=== PATIENT | male | born 1960 | race Caucasian/White ===

== ENCOUNTER 2024-07-27 22:24 | Emergency (ER) | payer OTHER ==
[~2024-07-27] VITALS: Ht 180.3 cm; Wt 113.6 kg
[2024-07-27 23:13] LABS: EOSINOPHILS # (AUTO) 0.1 X10'3 (0-0.9); EOSINOPHILS % (AUTO) 4.2 % (0-6); HEMOGLOBIN 7.1 g/dl (14.0-17.9); NEUTROPHILS # (AUTO) 1.2 X10'3 (1.8-7.7); WHITE BLOOD COUNT 2.4 X10'3 (4.5-11.0)
[2024-07-27 23:15] LABS: BASOPHILS % (AUTO) 0.7 % (0-1); LYMPHOCYTES # (AUTO) 0.9 X10'3 (1.1-4.8); LYMPHOCYTES % (AUTO) 36.5 % (21-51); MEAN CORPUSCULAR HEMOGLOBIN 29.3 PG (27.0-31.0); MEAN CORPUSCULAR HGB CONC 35.5 g/dL (33.0-36.5); MEAN CORPUSCULAR VOLUME 82.5 FL (78-98); MEAN PLATELET VOLUME 8.2 FL (7.4-10.4); MONOCYTES # (AUTO) 0.2 X10'3 (0-0.9); MONOCYTES % (AUTO) 10.3 % (2-12); NEUTROPHILS % (AUTO) 48.3 % (42-75); RED BLOOD COUNT 2.41 X10'6 (4.70-6.10); RED CELL DISTRIBUTION WIDTH 15.6 % (11.5-14.5)
[2024-07-27 23:22] LABS: ALBUMIN 2.6 G/DL (3.4-5.0); ANION GAP 5 (8-16); BLOOD UREA NITROGEN 14 MG/DL (7-18); BUN/CREATININE RATIO 11.4 (10.0-20.0); CALCIUM 7.6 MG/DL (8.5-10.1); CHLORIDE 100 MMOL/L (99-107); CREATININE 1.23 MG/DL (0.60-1.10); GLUCOSE 125 MG/DL (70-104); SODIUM 135 MMOL/L (135-145); TOTAL CARBON DIOXIDE 30.5 MMOL/L (24-32); eCRCL 65 ML/MIN; eGFR 59 ML/MIN
[2024-07-27 23:37] LABS: HEMATOCRIT 19.9 % (42.0-52.0); PLATELET COUNT 23 X10'3 (140-440)
[2024-07-27] MEDS: tranexamic acid 100mg/ml inj. TP ONE (23:42)
[2024-07-27] MEDS: LIDOcaine 1% W/epiNEPHrine 1:100,000 20ml vial IJ ONE (23:43)
[2024-07-27 23:53] LABS: BILIRUBIN,URINE NEGATIVE (Neg); CLARITY,URINE CLEAR (Clear); COLOR,URINE YELLOW (Yellow); GLUCOSE, URINE NEGATIVE (Neg); KETONES,URINE NEGATIVE (Neg); LEUKOCYTE ESTERASE ,URINE NEGATIVE (Neg); NITRITES, URINE NEGATIVE (Neg); OCCULT BLOOD,URINE TRACE-INTACT (Neg); PROTEIN,URINE TRACE mg/dl (Neg); UROBILINOGEN,URINE >=8.0 E.U/dL (0.2-1.0)
[2024-07-28 00:02] LABS: UA COLLECTION TYPE CLN CATCH MIDSTREAM
[2024-07-28 00:03] LABS: BACTERIA,URINE FEW /HPF (Neg); SQUAMOUS EPITHELIAL CELL,UR MODERATE /LPF (FEW); WBC,URINE 0-4 /HPF (0-4)
[2024-07-28 00:12] LABS: POTASSIUM 2.6 MMOL/L (3.5-5.1)
[2024-07-28 00:20] VITALS: TEMP 98.6
[2024-07-28] MEDS: ondansetron 4mg rapidly disintigrating tab PO ONE (00:27)
[2024-07-28] MEDS: potassium Cl 20 mEq SR tablet PO STA (00:28)
[2024-07-28 01:03] LABS: MAGNESIUM 1.6 MG/DL (1.5-2.4)
[2024-07-28 01:20] VITALS: BP 157/83; PULSE 76; RESP 16; O2SAT 99
[2024-07-28] MEDS ORDERED: POTA-207 PO (01:20)
== END 2024-07-28 01:33 | disposition home or self-care (01) ==
LOC: EDBD 22:25 → ER 22:25
DX: R04.0 Epistaxis (principal); E87.6 Hypokalemia; D64.9 Anemia, unspecified
CPT/HCPCS: 36415; 80048; 81001; 81003; 83735; 84145; 85025; 86885; 86900; 86901; 99283